=== PATIENT | male | born 1985 | race Caucasian/White ===

== ENCOUNTER 2019-10-17 14:32 | Emergency (ER) | payer OTHER ==
[2019-10-17 14:56] VITALS: BMI 21.9
[2019-10-17] MEDS ORDERED: KETOROLAC TROMETHAMINE 30 MG/1 ML VIAL IVPUSH ONE (16:28)
[2019-10-17] MEDS ORDERED: SODIUM CHLORIDE 1,000 ML IV STA (16:28)
[2019-10-17] MEDS ORDERED: ONDANSETRON *ODT* 4 MG TABLET ONE ×2 (16:32→17:59)
[2019-10-17] MEDS ORDERED: ONDANSETRON *ODT* 4 MG TABLET SL ONE (16:37)
--- NOTE | 2019-10-17 16:37 | PDOC ---
History of Present Illness - General Chief Complaint: Back Pain Stated Complaint: BACK PAIN Time Seen by Provider: 10/17/19 16:08 History Source: Patient Exam Limitations: No Limitations Past History - Travel Traveled outside of the country in the last 30 days: No Close contact w/someone who was outside of country & ill: No - Past Medical History Allergies/Adverse Reactions: Allergies Allergy/AdvReac Type Severity Reaction Status Date / Time No Known Allergies Allergy Verified 10/17/19 14:56 - Psycho Social/Smoking Cessation Hx Smoking History: Never smoked Hx Alcohol Use: No Drug/Substance Use Hx: No Review of Systems - Review of Systems Able to Perform ROS?: Yes Comments:: 10/17/19 16:37 CONSTITUTIONAL: Absent: fever, chills, diaphoresis, generalized weakness, malaise, loss of appetite HEENT: Absent: rhinorrhea, nasal congestion, throat pain, throat swelling, difficulty swallowing, mouth swelling, ear pain, eye pain, visual Changes GASTROINTESTINAL: Present: Nausea absent: abdominal pain, abdominal distension, vomiting, diarrhea , constipation, melena, hematochezia GENITOURINARY: Present: Hematuria, flank pain absent: dysuria, frequency, urgency, hesitancy, genital pain MUSCULOSKELETAL: Absent: myalgia, arthralgia, joint swelling SKIN: Absent: rash, itching, pallor NEUROLOGIC: Absent: headache, focal weakness or paresthesias, dizziness, unsteady gait, seizure, mental status changes, bladder or bowel incontinence PSYCHIATRIC: Absent: anxiety, depression, suicidal or homicidal ideation, hallucinations. Is the patient limited Ecuadorean proficient: No *Physical Exam - Vital Signs Last Vital Signs Temp Pulse Resp BP Pulse Ox 97.6 F 98 H 16 118/67 100 10/17/19 14:54 10/17/19 14:54 10/17/19 14:54 10/17/19 14:54 10/17/19 14:54 - Physical Exam 10/17/19 16:38 GENERAL: Well developed, well nourished. Awake and alert. Patient in mild distress, appears uncomfortable. HEENT: Normocephalic, atraumatic. PERRLA, EOMI. No conjunctival pallor. Sclera are non- icteric. Moist mucous membranes. Oropharynx is clear. NECK: Supple. Full ROM. No JVD. Carotid pulses 2+ and symmetric, without bruits. No thyromegaly. No lymphadenopathy. CARDIOVASCULAR: Regular rate and rhythm. No murmurs, rubs, or gallops. Distal pulses are 2+ and symmetric. PULMONARY: No evidence of respiratory distress. Lungs clear to auscultation bilaterally. No wheezing, rales or rhonchi. ABDOMINAL: Soft. Non-tender. Non-distended. No rebound or guarding. No organomegaly. Normoactive bowel sounds. MUSCULOSKELETAL Normal range of motion at all joints. No bony deformities or tenderness. (+) Right-sided CVA tenderness. EXTREMITIES: No cyanosis. No clubbing. No edema. No calf tenderness. SKIN: Warm and dry. Normal capillary refill. No rashes. No jaundice. NEUROLOGICAL: Alert, awake, appropriate. Cranial nerves 2-12 intact. No deficits to light touch and temperature in face, upper extremities and lower extremities. No motor deficits in the in face, upper extremities and lower extremities. Normoreflexic in the upper and lower extremities. Normal speech. Toes are down- going bilaterally. Gait is normal without ataxia. PSYCHIATRIC: Cooperative. Good eye contact. Appropriate mood and affect. Medical Decision Making - Medical Decision Making 10/17/19 16:40 The patient is a 34-year-old male with past medical history of kidney stones, presents to the ER with back pain starting this morning. He denies trauma or falling. He states that the pain is colicky in nature and that he had an episode of blood in his urine today. He states this feels like his last kidney stone. He has not taken anything for the pain. Denies fevers, chills, vomiting , diarrhea, constipation and dysuria. A/P: Right flank pain (+) R sided CVA tenderness Likely repeat kidney stone Pt feels naueous Line, Labs, Meds, CT Spiral ordered Transfer to [facility]. [employer] Chetan and charge nurse Georgie made aware. Discharge - Discharge Information Problems reviewed: Yes Clinical Impression/Diagnosis: Flank pain - Follow up/Referral Referrals: ON STAFF,NOT [Primary Care Provider] - - Patient Discharge Instructions - Post Discharge Activity
--- NOTE | 2019-10-17 17:18 | PDOC ---
*Physical Exam - Vital Signs Last Vital Signs Temp Pulse Resp BP Pulse Ox 97.6 F 98 H 16 118/67 100 10/17/19 14:54 10/17/19 14:54 10/17/19 14:54 10/17/19 14:54 10/17/19 14:54 ED Treatment Course - LABORATORY CBC & Chemistry Diagram: 10/17/19 18:15 10/17/19 18:15 Medical Decision Making - Medical Decision Making 10/17/19 17:00 Patient received from fast track for evaluation of right CVA tenderness and history of renal colic. Patient pending labs, imaging fluids and pain management 10/17/19 18:53 Laboratory Tests 10/17/19 18:15 WBC 6.6 Hct 45.7 MCV 86.0 Absolute Neuts (auto) 4.[address] awaiting results. Patient otherwise comfortable Discharge - Discharge Information Clinical Impression/Diagnosis: Flank pain - Follow up/Referral Referrals: ON STAFF,NOT [Primary Care Provider] - - Patient Discharge Instructions - Post Discharge Activity
[2019-10-17] MEDS ORDERED: KETOROLAC TROMETHAMINE 30 MG/1 ML VIAL ONE (18:00)
[2019-10-17 18:36] LABS: BASO % 0.5 % (0-2.0); EOS % 4.4 % (0-4.5); HEMATOCRIT 45.7 % (35.4-49); HEMOGLOBIN 15.3 GM/dL (11.7-16.9); MCH 28.7 pg (25.7-33.7); MCHC 33.4 g/dl (32.0-35.9); MEAN PLT VOLUME 8.8 fl (7.5-11.1); MONO % 5.3 % (3.8-10.2); NEUT % 66.8 % (42.8-82.8); PLATELET COUNT 263 K/MM3 (134-434); RBC 5.31 M/mm3 (4.00-5.60); RDW 13.7 % (11.9-15.9); WHITE BLOOD COUNT 6.6 K/mm3 (4.0-10.0)
[2019-10-17 19:20] LABS: ALBUMIN 3.9 g/dl (3.4-5.0); BILIRUBIN,TOTAL 0.4 mg/dL (0.2-1); BLOOD UREA NITROGEN 10.6 mg/dL (7-18); CALCIUM 9.2 mg/dL (8.5-10.1); CREATININE 1.2 mg/dL (0.55-1.3); POTASSIUM 4.1 mmol/L (3.5-5.1); TOT PROT 7.4 g/dl (6.4-8.2)
[2019-10-17] MEDS ORDERED: ACETAMINOPHEN 500 MG TABLET (FP) PO ONE (20:25)
--- NOTE | 2019-10-17 20:52 | PDOC ---
*Physical Exam - Vital Signs Last Vital Signs Temp Pulse Resp BP Pulse Ox 97.6 F 98 H 16 118/67 100 10/17/19 14:54 10/17/19 14:54 10/17/19 14:54 10/17/19 14:54 10/17/19 14:54 - Physical Exam General Appearance: Yes: Appropriately Dressed. No: Apparent Distress HEENT: positive: Normal ENT Inspection Neck: positive: Trachea midline Respiratory/Chest: positive: Lungs Clear. negative: Respiratory Distress Cardiovascular: positive: Regular Rhythm, Regular Rate. negative: Murmur Gastrointestinal/Abdominal: positive: Normal Bowel Sounds, Soft. negative: Tender Musculoskeletal: positive: CVA Tenderness (L) Extremity: positive: Normal Inspection Integumentary: positive: Normal Color, Dry, Warm Neurologic: positive: Fully Oriented, Alert ED Treatment Course - LABORATORY CBC & Chemistry Diagram: 10/17/19 18:15 10/17/19 18:15 - ADDITIONAL ORDERS Additional order review: Laboratory Results 10/17/19 18:15 Sodium 140 Potassium 4.1 Chloride 106 Carbon Dioxide 31 Anion Gap 3 L BUN 10.6 Creatinine 1.2 Est GFR (CKD-EPI)AfAm 89.62 Est GFR (CKD-EPI)NonAf 77.33 Random Glucose 103 Calcium 9.2 Total Bilirubin 0.4 AST 33 ALT 31 Alkaline Phosphatase 102 Total Protein 7.4 Albumin 3.9 10/17/19 18:15 RBC 5.31 MCV 86.0 MCHC 33.4 RDW 13.7 MPV 8.8 Neutrophils % 66.8 Lymphocytes % 23.0 Monocytes % 5.3 Eosinophils % 4.4 Basophils % 0.5 - Medications Given in the ED: ED Medications Discontinued Medications Generic Name Dose Route Start Last Admin Trade Name Freq PRN Reason Stop Dose Admin Acetaminophen 1,000 mg 10/17/19 20:25 10/17/19 20:47 Tylenol - PO 10/17/19 20:26 1,000 mg ONCE ONE Administration Sodium Chloride 1,000 mls @ 1,000 mls/hr 10/17/19 16:28 10/17/19 18:28 Normal Saline - IV 10/17/19 17:27 1,000 mls/hr ASDIR STA Administration Ketorolac Tromethamine 30 mg 10/17/19 16:28 10/17/19 18:28 Toradol Injection - IVPUSH 10/17/19 16:29 30 mg ONCE ONE Administration Ondansetron HCl 4 mg 10/17/19 16:37 10/17/19 18:28 Zofran Odt - SL 10/17/19 16:38 4 mg ONCE ONE Administration ED Progress Note - Progress Note Progress Note: 10/17/19 20:51 Received patient from SHANNA Benton. Briefly this a 34-year-old male past medical history of kidney stones, anxiety who presents emergency department for evaluation of sudden onset left flank pain starting today. Patient reports pain was similar to his previous kidney stone. Laboratory testing performed is unremarkable with urinalysis pending Patient is pending CT scan. Patient has received Toradol 30 mg IV and Zofran 4 mg IV Medical Decision Making - Medical Decision Making 10/17/19 20:50 CT scan is read by Dr. Crane: There is no definite right ureteral, urinary bladder calculus. Submillimeter calculi cannot be visualized on CT. 2 mm nonobstructing left renal upper and lower pole calculi are seen. No hydronephrosis is noted. Mild prostate enlargement The spleen is mildly enlarged measuring 13.3 cm in length. Stomach demonstrates moderate fluid-filled distention. No gross obstruction lesion is seen in noncontrast imaging. Several slightly prominent retroperitoneal lymph nodes are noted. Direct comparison with prior CT studies would be quite helpful if available from different facility. Prior studies are not available additional evaluation utilizing PET/CT versus 2-month follow-up CT is suggested. Patient reports eating approximately an hour and a half prior to CAT scan. Laboratory testing is unremarkable. Splenomegaly is likely not from infectious , malignant or hepatic etiology. Defer additional testing to primary medical doctor for continued evaluation and repeat imaging as an outpatient. Urinalysis is pending. 10/17/19 21:10 Laboratory Tests 10/17/19 21:00 Urine Color Yellow Urine Appearance Clear Urine pH 7.0 Ur Specific [place] 1.005 L Urine Protein Negative Urine Glucose (UA) Negative Urine Ketones Negative Urine Blood 3+ H Urine Nitrite Negative Urine Bilirubin Negative Urine Urobilinogen 1.0 Ur Leukocyte Esterase Negative Urine WBC (Auto) 1 Urine RBC (Auto) 9 Urine Casts (Auto) 0 U Epithel Cells (Auto) 0.3 Urine Bacteria (Auto) 1.4 Discharge patient home to follow-up with primary doctor and also give referral for urology given patient with microscopic hematuria, flank pain and renal calculi present on CT scan. I discussed the physical exam findings, ancillary test results and final diagnoses with the patient. I answered all of the patient's questions. The patient was satisfied with the care received and felt comfortable with the discharge plan and treatment plan. The patient will call their primary care physician within 24 hours to arrange follow-up and will return to the Emergency Department with any new, persistent or worsening symptoms. Discharge - Discharge Information Problems reviewed: Yes Clinical Impression/Diagnosis: Flank pain Condition: Fair Disposition: HOME - Admission No - Additional Discharge Information Prescriptions: Meloxicam 15 mg PO BID PRN #10 tablet PRN Reason: Pain Level 4 - 6 Ondansetron [Zofran -] 4 mg PO TID #21 tablet - Follow up/Referral Referrals: ON STAFF,NOT [Primary Care Provider] - Milton Brantley MD [Staff Physician] - - Patient Discharge Instructions Additional Instructions: Your CAT scan today showed 2 stones in your left kidney. Also you have a slightly enlarged spleen which needs to be evaluated with your regular doctor in 2 to 3 months. 2-3 L of water daily. strain all urine Take mobic one tablet twice a day for pain See your urologist in 1-2 days Into the ER if fever, vomiting, uncontrolled pain or feeling sicker - Post Discharge Activity Work/Back to School Note: Back to Work
[2019-10-17 21:08] LABS: EPI CELLS 0.3 /HPF (0-5/HPF); HYALINE CASTS 0 /lpf (0-8); URINE APPEARANCE CLEAR; URINE BACTERIA 1.4 /hpf (NEGATIVE); URINE BILIRUBIN NEGATIVE (NEGATIVE); URINE COLOR YELLOW; URINE GLUCOSE (UA) NEGATIVE (NEGATIVE); URINE KETONE NEGATIVE (NEGATIVE); URINE LEUK ESTERASE NEGATIVE (NEGATIVE); URINE NITRITE NEGATIVE (NEGATIVE); URINE PROTEIN NEGATIVE (NEGATIVE); URINE RBC 9 /hpf (0-4); URINE WBC 1 /hpf (0-5)
[2019-10-17 21:38] VITALS: BP 124/76; PULSE 80; TEMP 98.9
== END 2019-10-17 21:37 | disposition home or self-care (01) ==
LOC: JERFT 14:32 → JER 14:32
PROC: 3E0333Z Introduction of Anti-inflammatory into Peripheral Vein, Percutaneous Approach (ICD-10-PCS; principal; 2019-10-17)
DX: N20.0 Calculus of kidney (principal); R10.32 Left lower quadrant pain; Z87.442 Personal history of urinary calculi; F41.9 Anxiety disorder, unspecified
CPT/HCPCS: 36415; 74176-TC; 80053; 81003; 85025; 87086; 96374; 99282-25; J7030; Q0162

== ENCOUNTER 2019-10-18 12:25 | Emergency (ER) | payer OTHER ==
[2019-10-18 12:32] VITALS: BP 141/69; PULSE 90; TEMP 98; BMI 21.9
[2019-10-18] MEDS ORDERED: KETOROLAC TROMETHAMINE 60 MG/2 ML VIAL IM ONE (13:37)
[2019-10-18] MEDS ORDERED: ONDANSETRON 4 MG TABLET PO ONE (13:37)
--- NOTE | 2019-10-18 13:40 | PDOC ---
History of Present Illness - General Chief Complaint: Pain, Acute Stated Complaint: BLOOD IN URINE Time Seen by Provider: 10/18/19 13:33 History Source: Patient - History of Present Illness Quality: reports: moderate Abdominal Pain Onset Location: reports: flank Past History - Past Medical History Allergies/Adverse Reactions: Allergies Allergy/AdvReac Type Severity Reaction Status Date / Time No Known Allergies Allergy Verified 10/18/19 12:32 Home Medications: Ambulatory Orders Meloxicam 15 mg PO BID PRN #10 tablet 10/17/19 Ondansetron [Zofran -] 4 mg PO TID #21 tablet 10/17/19 COPD: No Kidney Stones: Yes - Psycho Social/Smoking Cessation Hx Smoking History: Current every day smoker Number of Cigarettes Smoked Daily: 10 Information on smoking cessation initiated: No Hx Alcohol Use: No Drug/Substance Use Hx: No Review of Systems - Review of Systems Constitutional: No: Chills, Fever ABD/GI: Yes: Nausea. No: Blood Streaked Bowels, Constipated, Diarrhea, Vomiting , Abdominal cramping, Tarry Stools : Yes: Flank Pain, Hematuria. No: Dysuria *Physical Exam - Vital Signs Last Vital Signs Temp Pulse Resp BP Pulse Ox 98 F 90 18 141/69 99 10/18/19 12:29 10/18/19 12:29 10/18/19 12:29 10/18/19 12:29 10/18/19 12:29 - Physical Exam 10/18/19 15:01 Pt appears well, currently sitting and talking on his cell phone General Appearance: Yes: Appropriately Dressed. No: Apparent Distress HEENT: positive: Normal Voice Neck: positive: Supple Respiratory/Chest: negative: Respiratory Distress Gastrointestinal/Abdominal: positive: Soft. negative: Tender Musculoskeletal: negative: CVA Tenderness Integumentary: positive: Dry, Warm Neurologic: positive: Fully Oriented, Alert, Normal Mood/Affect Medical Decision Making - Medical Decision Making 10/18/19 13:39 34 yo M, h/o renal stones, no surgeries to date, seen in ED yesterday for b/l kidney stones, more so on the L per pt. CT showed L non-obs stone, no ureteral stone or hydro. UA w/ no e/o infxn. Returns today w/ continued L flank pain but states pain has not worsened since yesterday. +mild nausea, since improved. No vomiting, fever, chills or dysuria at this time. Patient was discharged with meloxicam and zofran but has not yet picked up medication from pharmacy. Does not currently have a urologist See exam L flank pain Not worse since visit yesterday CT w/ L non-obs stones yesterday w/ no ureteral stone or hydro, no infxn on UA, ? MSK given worsening w/ movement Has not picked up meloxicam and zofran at pharmacy Well darling here and in NAD w/ benign abd and No CVAT -pain control/reassess -no utility in rpt labs and CT today 10/18/19 14:55 Reports significant improvement with meds and requesting discharge at this time. To follow-up with urology and PMD. Reasons to return discussed with patient Discharge - Discharge Information Problems reviewed: Yes Clinical Impression/Diagnosis: Left flank pain Condition: Improved Disposition: HOME - Follow up/Referral Referrals: ON STAFF,NOT [Primary Care Provider] - Jerry Valdez MD., MD [Staff Physician] - - Patient Discharge Instructions Additional Instructions: Take medications as prescribed and return to ER for worsening of symptoms, otherwise follow-up with Dr. Valdez of urology and your primary doctor - Post Discharge Activity
[2019-10-18] MEDS ORDERED: ONDANSETRON *ODT* 4 MG TABLET ONE (13:55)
[2019-10-18] MEDS ORDERED: KETOROLAC TROMETHAMINE 60 MG/2 ML VIAL ONE (13:55)
== END 2019-10-18 15:00 | disposition home or self-care (01) ==
LOC: JER 12:25
PROC: 3E0233Z Introduction of Anti-inflammatory into Muscle, Percutaneous Approach (ICD-10-PCS; principal; 2019-10-18)
DX: N20.0 Calculus of kidney (principal); Z87.442 Personal history of urinary calculi
CPT/HCPCS: 96372; 99282-25

== ENCOUNTER 2020-05-22 19:41 | Emergency (ER) | payer OTHER ==
[2020-05-22] MEDS ORDERED: KETOROLAC TROMETHAMINE 30 MG/1 ML VIAL IM ONE (19:49)
--- NOTE | 2020-05-22 19:49 | PDOC ---
Rapid Medical Evaluation Time Seen by Provider: 05/22/20 19:46 Medical Evaluation: Allergies Allergy/AdvReac Type Severity Reaction Status Date / Time No Known Allergies Allergy Verified 10/18/19 12:32 05/22/20 19:46 I have performed a brief in-person evaluation of this patient. CC: left flank pain with nausea. Recent dx of right renal stone PE: L CVAT. Orders: urine, toradol Patient will proceed to ED for further evaluation. Discharge Disposition - Diagnosis Left flank pain - Referrals - Patient Instructions - Post Discharge Activity
[2020-05-22 19:50] VITALS: BP 107/62; PULSE 77; TEMP 98.2; BMI 22.7
--- NOTE | 2020-05-22 20:21 | PDOC ---
History of Present Illness - General Chief Complaint: Pain, Acute Stated Complaint: BACK PAIN Time Seen by Provider: 05/22/20 19:46 History Source: Patient - History of Present Illness Initial Comments: 05/22/20 21:46 34-year-old male complaining of right flank pain on and off since October. Patient reports that he had a most recent CT on April 16 which showed a 4 mm obstructing stone. Patient denies any blood in his urine. Reports that today of Flomax was refilled by his physician and took a dose today. Patient is requesting Klonopin for his renal colic reports that it helps with his pain. Patient appears sleepy and is able to answer questions without problems Past History - Medical History Allergies/Adverse Reactions: Allergies Allergy/AdvReac Type Severity Reaction Status Date / Time No Known Allergies Allergy Verified 05/22/20 19:50 Home Medications: Ambulatory Orders Meloxicam 15 mg PO BID PRN #10 tablet 10/17/19 Ondansetron [Zofran -] 4 mg PO TID #21 tablet 10/17/19 COPD: No Kidney Stones: Yes - Psycho-Social/Smoking History Smoking History: Current every day smoker Number of Cigarettes Smoked Daily: 5 Information on smoking cessation initiated: Yes - Substance Abuse Hx (Audit-C & DAST Scrn) How often the patient has a drink containing alcohol: Never Score: In Men: 4 or > Positive; In Women: 3 or > Positive: 0 Screen Result (Pos requires Nsg. Audit-10AR): Negative In the last yr the pt used illegal drug/Rx for NonMed reason: No Score: Yes response is considered Positive: 0 Screen Result (Positive result requires Nsg. DAST-10): Negative Review of Systems - Review of Systems Able to Perform ROS?: Yes Is the patient limited Belarusian proficient: No *Physical Exam - Vital Signs Last Vital Signs Temp Pulse Resp BP Pulse Ox 98.2 F 77 18 107/62 98 05/22/20 19:46 05/22/20 19:46 05/22/20 19:46 05/22/20 19:46 05/22/20 19:46 - Physical Exam General Appearance: Yes: Appropriately Dressed Respiratory/Chest: positive: Lungs Clear, Normal Breath Sounds Musculoskeletal: positive: CVA Tenderness (R) Extremity: positive: Normal Capillary Refill, Normal Inspection, Normal Range of Motion Neurologic: positive: Fully Oriented, Alert, Motor Strength 5/5, Other Medical Decision Making - Medical Decision Making A: low back pain right flank area P; ua urine tox Spiral CT : no obstructed stone outpaTIENT urology/ pcp follow up Discharge - Discharge Information Problems reviewed: Yes Clinical Impression/Diagnosis: Back pain Qualifiers: Back pain location: low back pain Chronicity: chronic Back pain laterality: right Sciatica presence: unspecified whether sciatica present Qualified Code(s): M54.5 - Low back pain Disposition: HOME - Follow up/Referral - Patient Discharge Instructions Patient Printed Discharge Instructions: Low Back Pain Additional Instructions: Take ibuprofen every 6 hours as needed for pain. You may continue Flomax. Follow-up with a urologist return to the emergency room for any worsening symptoms - Post Discharge Activity
[2020-05-22] MEDS ORDERED: KETOROLAC TROMETHAMINE 30 MG/1 ML VIAL ONE (20:37)
[2020-05-22 20:51] LABS: URINE APPEARANCE CLEAR; URINE BILIRUBIN NEGATIVE (NEGATIVE); URINE COLOR YELLOW; URINE GLUCOSE (UA) NEGATIVE (NEGATIVE); URINE KETONE NEGATIVE (NEGATIVE); URINE LEUK ESTERASE NEGATIVE (NEGATIVE); URINE NITRITE NEGATIVE (NEGATIVE); URINE PROTEIN NEGATIVE (NEGATIVE)
[2020-05-22] MEDS ORDERED: diphenhydrAMINE HCL 25 MG CAPSULE (FP) PO ONE ×2 (20:53→21:13)
[2020-05-22 21:21] LABS: COCAINE, UR NEGATIVE ng/ml (CUTOFF=300); METHADONE, UR NEGATIVE ng/ml (CUTOFF=300); OPIATES, URI NEGATIVE ng/ml (CUTOFF=300); PHENCYCLIDINE,URINE NEGATIVE ng/ml (CUTOFF=25); URINE AMPHETAMINES NEGATIVE ng/ml (CUTOFF=500); URINE BARBITURATES NEGATIVE ng/ml (CUTOFF=200); URINE BENZODIAZEPINES NEGATIVE ng/ml (CUTOFF=200)
== END 2020-05-22 22:30 | disposition home or self-care (01) ==
LOC: JER 19:41
PROC: 3E0233Z Introduction of Anti-inflammatory into Muscle, Percutaneous Approach (ICD-10-PCS; principal; 2020-05-22)
DX: M54.5 Low back pain (principal)
CPT/HCPCS: 74176-TC; 80307; 81003; 87086; 99284-25

== ENCOUNTER 2021-08-01 13:40 | Inpatient (IN) | payer OTHER ==
[2021-08-01 16:06] VITALS: BMI 23.1
[2021-08-01] MEDS ORDERED: ONDANSETRON *ODT* 4 MG TABLET SL PRN (17:59)
[2021-08-01] MEDS ORDERED: MAGNESIUM CITRATE 300 ML BOTTLE PO PRN (17:59)
[2021-08-01] MEDS ORDERED: MENTHOL/PHENOL 1 EACH UD MM PRN (17:59)
[2021-08-01] MEDS ORDERED: MAG HYDROX/AL HYDROX/SIMETH 30 ML UNIT-DOSE CUP PO PRN (17:59)
[2021-08-01] MEDS ORDERED: BISMUTH SUBSALICYLATE 524 MG/30 ML PO PRN (17:59)
[2021-08-01] MEDS ORDERED: ACETAMINOPHEN 325 MG TABLET (FP) PO PRN ×2 (17:59)
[2021-08-01] MEDS ORDERED: MAGNESIUM HYDROX 2400MG/30ML ORAL SUSPENSION 30 ML CUP PO PRN (17:59)
[2021-08-01] MEDS ORDERED: NICOTINE 10 MG CARTRIDGE (INHALER) IH PRN (17:59)
[2021-08-01] MEDS ORDERED: MELATONIN 5 MG TABLETS PO SCH (22:00)
[2021-08-01] MEDS: diazePAM 5 MG TABLET PO SCH (22:57)
[2021-08-01] MEDS: THIAMINE HCL 100 MG TABLET (FP) PO SCH (22:58)
[2021-08-01] MEDS: hydrOXYzine PAMOATE 25 MG CAPSULE (FP) PO SCH ×3 (23:02→23:08)
[2021-08-02] MEDS: hydrOXYzine PAMOATE 25 MG CAPSULE (FP) PO SCH (05:13)
[2021-08-02] MEDS: diazePAM 5 MG TABLET PO SCH ×4 (05:13→22:03)
[2021-08-02] MEDS: PRENATAL VITAMINS W/ FOLIC ACID TABLET (FP) PO SCH (10:27)
[2021-08-02] MEDS: methaDONE HCL 40 MG DISPERSABLE TABLET PO SCH (10:27)
[2021-08-02 11:42] LABS: ALBUMIN 3.4 g/dl (3.4-5.0); BLOOD UREA NITROGEN 9.4 mg/dL (7-18); CALCIUM 8.7 mg/dL (8.5-10.1)
[2021-08-02 11:46] LABS: CREATININE 1.2 mg/dL (0.55-1.3); HEMATOCRIT 44.7 % (35.4-49); HEMOGLOBIN 15.2 GM/dL (11.7-16.9); MCH 29.6 pg (25.7-33.7); MCHC 33.9 g/dl (32.0-35.9); MEAN CELL VOLUME 87.3 fl (80-96); MEAN PLT VOLUME 9.9 fl (7.5-11.1); PLATELET COUNT 155 10^3/uL (134-434); RBC 5.13 M/mm3 (4.00-5.60); RDW 13.1 % (11.9-15.9); WHITE BLOOD COUNT 7.2 K/mm3 (4.0-10.0)
[2021-08-02 11:47] LABS: BILIRUBIN,TOTAL 0.3 mg/dL (0.2-1); TOT PROT 6.5 g/dl (6.4-8.2)
[2021-08-02] MEDS: THIAMINE HCL 100 MG TABLET (FP) PO SCH (21:56)
[2021-08-02] MEDS: AMITRIPTYLINE HCL 25 MG TABLET PO SCH (21:56)
[2021-08-03] MEDS: methaDONE HCL 40 MG DISPERSABLE TABLET PO SCH (05:17)
[2021-08-03] MEDS: diazePAM 5 MG TABLET PO SCH ×3 (05:17→22:58)
[2021-08-03] MEDS: IBUPROFEN 400 MG TABLET (FP) PO PRN ×2 (05:18→23:01)
[2021-08-03] MEDS: METHOCARBAMOL 500 MG TABLET PO PRN (10:09)
[2021-08-03] MEDS: diazePAM 5 MG TABLET PO PRN (10:09)
[2021-08-03] MEDS: PRENATAL VITAMINS W/ FOLIC ACID TABLET (FP) PO SCH (10:09)
[2021-08-03] MEDS: AMITRIPTYLINE HCL 25 MG TABLET PO SCH ×2 (13:20→22:58)
[2021-08-03] MEDS: THIAMINE HCL 100 MG TABLET (FP) PO SCH (22:57)
[2021-08-04] MEDS: methaDONE HCL 40 MG DISPERSABLE TABLET PO SCH (05:09)
[2021-08-04] MEDS: diazePAM 5 MG TABLET PO SCH ×2 (05:09→17:33)
[2021-08-04] MEDS: IBUPROFEN 400 MG TABLET (FP) PO PRN ×2 (05:10→15:07)
[2021-08-04] MEDS: PRENATAL VITAMINS W/ FOLIC ACID TABLET (FP) PO SCH (10:22)
[2021-08-04] MEDS: METHOCARBAMOL 500 MG TABLET PO PRN (10:22)
[2021-08-04] MEDS: diazePAM 5 MG TABLET PO PRN ×2 (10:24→15:06)
[2021-08-04] MEDS: AMITRIPTYLINE HCL 25 MG TABLET PO SCH ×2 (10:29→22:15)
[2021-08-04] MEDS: THIAMINE HCL 100 MG TABLET (FP) PO SCH (22:14)
[2021-08-05] MEDS ORDERED: diazePAM 5 MG TABLET PO ONE (06:00)
[2021-08-05] MEDS: methaDONE HCL 40 MG DISPERSABLE TABLET PO SCH (06:35)
[2021-08-05] MEDS: IBUPROFEN 400 MG TABLET (FP) PO PRN (06:36)
[2021-08-05 09:00] VITALS: BP 113/79; PULSE 91; TEMP 97.5
[2021-08-05] MEDS: PRENATAL VITAMINS W/ FOLIC ACID TABLET (FP) PO SCH (10:29)
[2021-08-05] MEDS: METHOCARBAMOL 500 MG TABLET PO PRN (10:29)
[2021-08-05] MEDS: AMITRIPTYLINE HCL 25 MG TABLET PO SCH (12:17)
== END 2021-08-05 12:29 | disposition other institution (70) | DRG 773 ==
LOC: YASAS 13:40 → Y6N 21:33
PROVIDERS: ADMIT Allergy & Immunology; ATTEND Allergy & Immunology
PROC: HZ2ZZZZ Detoxification Services for Substance Abuse Treatment (ICD-10-PCS; principal; 2021-08-01)
DX: F10.230 Alcohol dependence with withdrawal, uncomplicated (principal); F11.20 Opioid dependence, uncomplicated; F17.210 Nicotine dependence, cigarettes, uncomplicated; F19.280 Other psychoactive substance dependence with psychoactive substance-induced anxiety disorder; F19.282 Other psychoactive substance dependence with psychoactive substance-induced sleep disorder; F19.24 Other psychoactive substance dependence with psychoactive substance-induced mood disorder; F32.A Depression, unspecified; F98.8 Other specified behavioral and emotional disorders with onset usually occurring in childhood and adolescence; Z87.442 Personal history of urinary calculi; Z98.890 Other specified postprocedural states
CPT/HCPCS: 36415; 80053; 85027; 86780; C9803; U0003; U0005

== ENCOUNTER 2021-08-05 12:35 | Inpatient (IN) | payer OTHER ==
[2021-08-05] MEDS ORDERED: ACETAMINOPHEN 325 MG TABLET (FP) PO PRN (12:49)
[2021-08-05] MEDS ORDERED: P-EPHED 60MG/TRIPROLIDI 2.5MG TABLET PO PRN (12:49)
[2021-08-05] MEDS ORDERED: LOPERAMIDE HCL 2 MG CAPSULE PO PRN (12:49)
[2021-08-05] MEDS ORDERED: IBUPROFEN 400 MG TABLET (FP) PO PRN (12:49)
[2021-08-05] MEDS ORDERED: guaiFENesin 200 MG/10 ML 10 ML UNIT-DOSE CUPS PO PRN (12:49)
[2021-08-05] MEDS ORDERED: MAG HYDROX/AL HYDROX/SIMETH 30 ML UNIT-DOSE CUP PO PRN (12:49)
[2021-08-05] MEDS ORDERED: MAGNESIUM HYDROX 2400MG/30ML ORAL SUSPENSION 30 ML CUP PO PRN (12:49)
[2021-08-05] MEDS ORDERED: MAGNESIUM CITRATE 300 ML BOTTLE PO PRN (12:49)
[2021-08-05] MEDS: AMITRIPTYLINE HCL 25 MG TABLET PO SCH (21:29)
[2021-08-05] MEDS: MELATONIN 5 MG TABLETS PO SCH (21:30)
[2021-08-05] MEDS: THIAMINE HCL 100 MG TABLET (FP) PO SCH (21:30)
[2021-08-05] MEDS: hydrOXYzine PAMOATE 25 MG CAPSULE (FP) PO PRN (21:30)
[2021-08-06] MEDS: methaDONE HCL 40 MG DISPERSABLE TABLET PO SCH (07:23)
[2021-08-06] MEDS: PRENATAL VITAMINS W/ FOLIC ACID TABLET (FP) PO SCH (09:13)
[2021-08-06] MEDS: AMITRIPTYLINE HCL 25 MG TABLET PO SCH ×2 (09:13→21:56)
[2021-08-06] MEDS: NICOTINE 7 MG/24 HOURS TOPICAL PATCH TD SCH (09:13)
[2021-08-06] MEDS: hydrOXYzine PAMOATE 25 MG CAPSULE (FP) PO PRN ×3 (09:15→21:56)
[2021-08-06] MEDS: METHOCARBAMOL 500 MG TABLET PO PRN ×2 (11:05→21:56)
[2021-08-06] MEDS: GABAPENTIN 100 MG CAPSULE PO SCH ×3 (11:05→21:56)
[2021-08-06] MEDS: THIAMINE HCL 100 MG TABLET (FP) PO SCH (21:55)
[2021-08-06] MEDS: MELATONIN 5 MG TABLETS PO SCH (21:56)
[2021-08-07] MEDS: methaDONE HCL 40 MG DISPERSABLE TABLET PO SCH (06:19)
[2021-08-07] MEDS: GABAPENTIN 100 MG CAPSULE PO SCH ×2 (06:19→14:32)
[2021-08-07] MEDS ORDERED: MASKS NR ONE (07:56)
[2021-08-07] MEDS: AMITRIPTYLINE HCL 25 MG TABLET PO SCH ×2 (09:38→21:27)
[2021-08-07] MEDS: METHOCARBAMOL 500 MG TABLET PO PRN ×2 (09:38→21:27)
[2021-08-07] MEDS: PRENATAL VITAMINS W/ FOLIC ACID TABLET (FP) PO SCH (09:38)
[2021-08-07] MEDS: hydrOXYzine PAMOATE 25 MG CAPSULE (FP) PO PRN ×2 (09:38→14:42)
[2021-08-07] MEDS: NICOTINE 7 MG/24 HOURS TOPICAL PATCH TD SCH (09:39)
[2021-08-07] MEDS ORDERED: GABAPENTIN 300 MG CAPSULE PO SCH ×2 (14:32→22:00)
[2021-08-07] MEDS: IBUPROFEN 600 MG TABLET (FP) PO PRN (14:42)
[2021-08-07] MEDS ORDERED: GABAPENTIN 300 MG CAPSULE PO ONE (15:03)
[2021-08-07] MEDS: MELATONIN 5 MG TABLETS PO SCH (21:28)
[2021-08-07] MEDS: THIAMINE HCL 100 MG TABLET (FP) PO SCH (21:28)
[2021-08-07] MEDS: GABAPENTIN 300 MG CAPSULE PO SCH (21:29)
[2021-08-08] MEDS: IBUPROFEN 600 MG TABLET (FP) PO PRN ×2 (03:59→22:41)
[2021-08-08] MEDS: GABAPENTIN 300 MG CAPSULE PO SCH ×3 (06:35→21:19)
[2021-08-08] MEDS: methaDONE HCL 40 MG DISPERSABLE TABLET PO SCH (06:35)
[2021-08-08] MEDS: PRENATAL VITAMINS W/ FOLIC ACID TABLET (FP) PO SCH (09:47)
[2021-08-08] MEDS: hydrOXYzine PAMOATE 25 MG CAPSULE (FP) PO PRN ×3 (09:47→21:19)
[2021-08-08] MEDS: AMITRIPTYLINE HCL 25 MG TABLET PO SCH ×2 (09:47→21:19)
[2021-08-08] MEDS: NICOTINE 7 MG/24 HOURS TOPICAL PATCH TD SCH (09:47)
[2021-08-08] MEDS ORDERED: MASKS NR ONE (11:00)
[2021-08-08] MEDS: THIAMINE HCL 100 MG TABLET (FP) PO SCH (21:19)
[2021-08-08] MEDS: MELATONIN 5 MG TABLETS PO SCH (21:19)
[2021-08-08] MEDS: METHOCARBAMOL 500 MG TABLET PO PRN (21:19)
[2021-08-09] MEDS: METHOCARBAMOL 500 MG TABLET PO PRN ×3 (06:03→22:13)
[2021-08-09] MEDS: GABAPENTIN 300 MG CAPSULE PO SCH ×3 (06:03→22:12)
[2021-08-09] MEDS: methaDONE HCL 40 MG DISPERSABLE TABLET PO SCH (06:03)
[2021-08-09] MEDS: AMITRIPTYLINE HCL 25 MG TABLET PO SCH ×2 (09:43→22:12)
[2021-08-09] MEDS: NICOTINE 7 MG/24 HOURS TOPICAL PATCH TD SCH (09:43)
[2021-08-09] MEDS: PRENATAL VITAMINS W/ FOLIC ACID TABLET (FP) PO SCH (09:43)
[2021-08-09] MEDS: hydrOXYzine PAMOATE 25 MG CAPSULE (FP) PO PRN ×2 (09:44→14:44)
[2021-08-09] MEDS: NICOTINE 10 MG CARTRIDGE (INHALER) IH PRN ×2 (14:46→22:14)
[2021-08-09] MEDS: IBUPROFEN 600 MG TABLET (FP) PO PRN (22:12)
[2021-08-09] MEDS: MELATONIN 5 MG TABLETS PO SCH (22:13)
[2021-08-09] MEDS: THIAMINE HCL 100 MG TABLET (FP) PO SCH (22:13)
[2021-08-10] MEDS: METHOCARBAMOL 500 MG TABLET PO PRN ×2 (06:16→21:25)
[2021-08-10] MEDS: GABAPENTIN 300 MG CAPSULE PO SCH ×3 (06:16→21:25)
[2021-08-10] MEDS: methaDONE HCL 40 MG DISPERSABLE TABLET PO SCH (06:16)
[2021-08-10] MEDS: AMITRIPTYLINE HCL 25 MG TABLET PO SCH ×2 (09:57→21:25)
[2021-08-10] MEDS: IBUPROFEN 600 MG TABLET (FP) PO PRN (09:57)
[2021-08-10] MEDS: PRENATAL VITAMINS W/ FOLIC ACID TABLET (FP) PO SCH (09:57)
[2021-08-10] MEDS: NICOTINE 7 MG/24 HOURS TOPICAL PATCH TD SCH (09:57)
[2021-08-10] MEDS: hydrOXYzine PAMOATE 25 MG CAPSULE (FP) PO PRN ×2 (14:14→21:25)
[2021-08-10] MEDS: MELATONIN 5 MG TABLETS PO SCH (21:25)
[2021-08-10] MEDS: THIAMINE HCL 100 MG TABLET (FP) PO SCH (21:25)
[2021-08-11] MEDS: METHOCARBAMOL 500 MG TABLET PO PRN ×2 (06:07→21:39)
[2021-08-11] MEDS: methaDONE HCL 40 MG DISPERSABLE TABLET PO SCH (06:08)
[2021-08-11] MEDS: GABAPENTIN 300 MG CAPSULE PO SCH ×3 (06:08→21:39)
[2021-08-11] MEDS: NICOTINE 7 MG/24 HOURS TOPICAL PATCH TD SCH (09:53)
[2021-08-11] MEDS: AMITRIPTYLINE HCL 25 MG TABLET PO SCH ×2 (09:53→21:39)
[2021-08-11] MEDS: hydrOXYzine PAMOATE 25 MG CAPSULE (FP) PO PRN ×3 (09:53→21:39)
[2021-08-11] MEDS: PRENATAL VITAMINS W/ FOLIC ACID TABLET (FP) PO SCH (09:53)
[2021-08-11] MEDS: THIAMINE HCL 100 MG TABLET (FP) PO SCH (21:39)
[2021-08-11] MEDS: MELATONIN 5 MG TABLETS PO SCH (21:39)
[2021-08-12] MEDS: IBUPROFEN 600 MG TABLET (FP) PO PRN ×2 (04:00→21:52)
[2021-08-12] MEDS: methaDONE HCL 40 MG DISPERSABLE TABLET PO SCH (06:14)
[2021-08-12] MEDS: METHOCARBAMOL 500 MG TABLET PO PRN ×2 (06:14→21:52)
[2021-08-12] MEDS: GABAPENTIN 300 MG CAPSULE PO SCH ×3 (06:14→21:53)
[2021-08-12] MEDS: NICOTINE 7 MG/24 HOURS TOPICAL PATCH TD SCH (09:58)
[2021-08-12] MEDS: PRENATAL VITAMINS W/ FOLIC ACID TABLET (FP) PO SCH (09:58)
[2021-08-12] MEDS: hydrOXYzine PAMOATE 25 MG CAPSULE (FP) PO PRN ×2 (09:59→15:00)
[2021-08-12] MEDS: AMITRIPTYLINE HCL 25 MG TABLET PO SCH ×2 (09:59→21:52)
[2021-08-12] MEDS: THIAMINE HCL 100 MG TABLET (FP) PO SCH (21:52)
[2021-08-12] MEDS: MELATONIN 5 MG TABLETS PO SCH (21:53)
[2021-08-13] MEDS: IBUPROFEN 600 MG TABLET (FP) PO PRN ×2 (04:50→21:54)
[2021-08-13] MEDS: methaDONE HCL 40 MG DISPERSABLE TABLET PO SCH (06:10)
[2021-08-13] MEDS: GABAPENTIN 300 MG CAPSULE PO SCH ×3 (06:10→21:53)
[2021-08-13] MEDS: hydrOXYzine PAMOATE 25 MG CAPSULE (FP) PO PRN ×3 (09:38→21:53)
[2021-08-13] MEDS: AMITRIPTYLINE HCL 25 MG TABLET PO SCH ×2 (09:38→21:53)
[2021-08-13] MEDS: PRENATAL VITAMINS W/ FOLIC ACID TABLET (FP) PO SCH (09:38)
[2021-08-13] MEDS: METHOCARBAMOL 500 MG TABLET PO PRN ×2 (09:38→21:52)
[2021-08-13] MEDS: NICOTINE 7 MG/24 HOURS TOPICAL PATCH TD SCH (09:38)
[2021-08-13] MEDS: THIAMINE HCL 100 MG TABLET (FP) PO SCH (21:53)
[2021-08-13] MEDS: MELATONIN 5 MG TABLETS PO SCH (21:53)
[2021-08-14] MEDS: GABAPENTIN 300 MG CAPSULE PO SCH ×3 (06:06→21:17)
[2021-08-14] MEDS: methaDONE HCL 40 MG DISPERSABLE TABLET PO SCH (06:06)
[2021-08-14] MEDS: METHOCARBAMOL 500 MG TABLET PO PRN ×2 (06:06→21:17)
[2021-08-14] MEDS: IBUPROFEN 600 MG TABLET (FP) PO PRN ×2 (06:06→14:36)
[2021-08-14] MEDS: AMITRIPTYLINE HCL 25 MG TABLET PO SCH ×2 (09:57→21:17)
[2021-08-14] MEDS: PRENATAL VITAMINS W/ FOLIC ACID TABLET (FP) PO SCH (09:57)
[2021-08-14] MEDS: NICOTINE 7 MG/24 HOURS TOPICAL PATCH TD SCH (09:57)
[2021-08-14] MEDS: hydrOXYzine PAMOATE 25 MG CAPSULE (FP) PO PRN ×2 (09:58→14:36)
[2021-08-14] MEDS: THIAMINE HCL 100 MG TABLET (FP) PO SCH (21:17)
[2021-08-14] MEDS: MELATONIN 5 MG TABLETS PO SCH (21:17)
[2021-08-15] MEDS: methaDONE HCL 40 MG DISPERSABLE TABLET PO SCH (06:05)
[2021-08-15] MEDS: GABAPENTIN 300 MG CAPSULE PO SCH ×3 (06:05→21:20)
[2021-08-15] MEDS: METHOCARBAMOL 500 MG TABLET PO PRN ×2 (06:05→21:20)
[2021-08-15] MEDS: IBUPROFEN 600 MG TABLET (FP) PO PRN ×2 (06:05→18:33)
[2021-08-15] MEDS: PRENATAL VITAMINS W/ FOLIC ACID TABLET (FP) PO SCH (09:58)
[2021-08-15] MEDS: AMITRIPTYLINE HCL 25 MG TABLET PO SCH ×2 (09:58→21:20)
[2021-08-15] MEDS: hydrOXYzine PAMOATE 25 MG CAPSULE (FP) PO PRN ×2 (09:59→21:21)
[2021-08-15] MEDS: NICOTINE 7 MG/24 HOURS TOPICAL PATCH TD SCH (09:59)
[2021-08-15] MEDS: THIAMINE HCL 100 MG TABLET (FP) PO SCH (21:20)
[2021-08-15] MEDS: MELATONIN 5 MG TABLETS PO SCH (21:21)
[2021-08-16] MEDS: methaDONE HCL 40 MG DISPERSABLE TABLET PO SCH (06:52)
[2021-08-16] MEDS: IBUPROFEN 600 MG TABLET (FP) PO PRN ×2 (06:52→21:18)
[2021-08-16] MEDS: METHOCARBAMOL 500 MG TABLET PO PRN ×2 (06:52→21:16)
[2021-08-16] MEDS: GABAPENTIN 300 MG CAPSULE PO SCH ×3 (06:52→21:16)
[2021-08-16] MEDS: PRENATAL VITAMINS W/ FOLIC ACID TABLET (FP) PO SCH (09:52)
[2021-08-16] MEDS: hydrOXYzine PAMOATE 25 MG CAPSULE (FP) PO PRN (09:53)
[2021-08-16] MEDS: AMITRIPTYLINE HCL 25 MG TABLET PO SCH ×2 (09:53→21:16)
[2021-08-16] MEDS: NICOTINE 7 MG/24 HOURS TOPICAL PATCH TD SCH (09:53)
[2021-08-16] MEDS: THIAMINE HCL 100 MG TABLET (FP) PO SCH (21:16)
[2021-08-16] MEDS: MELATONIN 5 MG TABLETS PO SCH (21:16)
[2021-08-17] MEDS: METHOCARBAMOL 500 MG TABLET PO PRN ×2 (06:09→22:06)
[2021-08-17] MEDS: GABAPENTIN 300 MG CAPSULE PO SCH ×3 (06:09→22:06)
[2021-08-17] MEDS: methaDONE HCL 40 MG DISPERSABLE TABLET PO SCH (06:10)
[2021-08-17] MEDS: IBUPROFEN 600 MG TABLET (FP) PO PRN (06:10)
[2021-08-17] MEDS: AMITRIPTYLINE HCL 25 MG TABLET PO SCH ×2 (09:43→22:06)
[2021-08-17] MEDS: PRENATAL VITAMINS W/ FOLIC ACID TABLET (FP) PO SCH (09:43)
[2021-08-17] MEDS: NICOTINE 7 MG/24 HOURS TOPICAL PATCH TD SCH (09:43)
[2021-08-17] MEDS: hydrOXYzine PAMOATE 25 MG CAPSULE (FP) PO PRN (09:44)
[2021-08-17] MEDS: MELATONIN 5 MG TABLETS PO SCH (22:06)
[2021-08-17] MEDS: THIAMINE HCL 100 MG TABLET (FP) PO SCH (22:06)
[2021-08-18] MEDS: methaDONE HCL 40 MG DISPERSABLE TABLET PO SCH (06:14)
[2021-08-18] MEDS: GABAPENTIN 300 MG CAPSULE PO SCH ×3 (06:14→21:22)
[2021-08-18] MEDS: METHOCARBAMOL 500 MG TABLET PO PRN ×2 (06:14→21:22)
[2021-08-18] MEDS: AMITRIPTYLINE HCL 25 MG TABLET PO SCH ×2 (09:53→21:22)
[2021-08-18] MEDS: PRENATAL VITAMINS W/ FOLIC ACID TABLET (FP) PO SCH (09:53)
[2021-08-18] MEDS: NICOTINE 7 MG/24 HOURS TOPICAL PATCH TD SCH (09:53)
[2021-08-18] MEDS: THIAMINE HCL 100 MG TABLET (FP) PO SCH (21:22)
[2021-08-18] MEDS: MELATONIN 5 MG TABLETS PO SCH (21:22)
[2021-08-19] MEDS: GABAPENTIN 300 MG CAPSULE PO SCH (06:31)
[2021-08-19] MEDS: METHOCARBAMOL 500 MG TABLET PO PRN (06:32)
[2021-08-19] MEDS: methaDONE HCL 40 MG DISPERSABLE TABLET PO SCH (06:32)
[2021-08-19] MEDS: IBUPROFEN 600 MG TABLET (FP) PO PRN (06:35)
[2021-08-19 07:01] VITALS: BP 138/92; PULSE 80; TEMP 97.8
[2021-08-19] MEDS: PRENATAL VITAMINS W/ FOLIC ACID TABLET (FP) PO SCH (09:57)
[2021-08-19] MEDS: AMITRIPTYLINE HCL 25 MG TABLET PO SCH (09:57)
[2021-08-19] MEDS: NICOTINE 7 MG/24 HOURS TOPICAL PATCH TD SCH (09:58)
== END 2021-08-19 09:58 | disposition home or self-care (01) | DRG 772 ==
LOC: YASAS 12:35 → Y5N 12:36
PROVIDERS: ADMIT Allergy & Immunology; ATTEND Allergy & Immunology
PROC: HZ42ZZZ Group Counseling for Substance Abuse Treatment, Cognitive-Behavioral (ICD-10-PCS; principal; 2021-08-05)
DX: F10.20 Alcohol dependence, uncomplicated (principal); F11.20 Opioid dependence, uncomplicated; F17.210 Nicotine dependence, cigarettes, uncomplicated; F41.9 Anxiety disorder, unspecified; F98.8 Other specified behavioral and emotional disorders with onset usually occurring in childhood and adolescence; Z87.442 Personal history of urinary calculi; S29.9XXD Unspecified injury of thorax, subsequent encounter; X58.XXXD Exposure to other specified factors, subsequent encounter
CPT/HCPCS: 93005; 93010

== ENCOUNTER 2022-03-21 15:00 | Inpatient (IN) | payer OTHER ==
[2022-03-21] MEDS ORDERED: ONDANSETRON *ODT* 4 MG TABLET SL PRN (22:50)
[2022-03-21] MEDS ORDERED: ACETAMINOPHEN 325 MG TABLET (FP) PO PRN ×2 (22:50)
[2022-03-21] MEDS ORDERED: MAG HYDROX/AL HYDROX/SIMETH 30 ML UNIT-DOSE CUP PO PRN (22:50)
[2022-03-21] MEDS ORDERED: hydrOXYzine PAMOATE 25 MG CAPSULE (FP) PO PRN (22:50)
[2022-03-21] MEDS ORDERED: MAGNESIUM CITRATE 300 ML BOTTLE PO PRN (22:50)
[2022-03-21] MEDS ORDERED: BISMUTH SUBSALICYLATE 524 MG/30 ML PO PRN (22:50)
[2022-03-21] MEDS ORDERED: BENZOCAINE/MENTHOL (CHLORASEPTIC ) LOZENGE MM PRN (22:50)
[2022-03-21] MEDS ORDERED: MAGNESIUM HYDROX 2400MG/30ML ORAL SUSPENSION 30 ML CUP PO PRN (22:50)
[2022-03-21] MEDS ORDERED: DICYCLOMINE HCL 10 MG CAPSULE PO PRN (22:50)
[2022-03-21] MEDS ORDERED: LOPERAMIDE HCL 2 MG CAPSULE PO PRN (22:50)
[2022-03-22] MEDS: GABAPENTIN 300 MG CAPSULE PO SCH ×3 (00:49→15:03)
[2022-03-22] MEDS: MELATONIN 5 MG TABLETS PO PRN (00:50)
[2022-03-22] MEDS: diazePAM 5 MG TABLET PO SCH ×5 (00:50→23:59)
[2022-03-22] MEDS: diazePAM 5 MG TABLET PO PRN (07:46)
[2022-03-22] MEDS ORDERED: methaDONE HCL 10 MG TABLET PO SCH (10:00)
[2022-03-22] MEDS ORDERED: methaDONE HCL 40 MG DISPERSABLE TABLET ONE (10:41)
[2022-03-22] MEDS ORDERED: methaDONE HCL 10 MG TABLET ONE (10:41)
[2022-03-22] MEDS: methaDONE 40 MG, methaDONE 30 MG PO SCH (10:42)
[2022-03-22] MEDS: METHOCARBAMOL 500 MG TABLET PO PRN (10:44)
[2022-03-22] MEDS: NICOTINE 14 MG/24 HOURS TOPICAL PATCH TD SCH (10:45)
[2022-03-22] MEDS: PRENATAL VITAMINS W/ FOLIC ACID TABLET (FP) PO SCH (10:46)
[2022-03-22] MEDS ORDERED: hydrOXYzine PAMOATE 25 MG CAPSULE (FP) PO PRN (12:53)
[2022-03-22 13:10] LABS: HEMATOCRIT 41.7 % (35.4-49); HEMOGLOBIN 14.1 GM/dL (11.7-16.9); MCH 27.9 pg (25.7-33.7); MCHC 33.7 g/dl (32.0-35.9); MEAN CELL VOLUME 82.8 fl (80-96); MEAN PLT VOLUME 8.9 fl (7.5-11.1); PLATELET COUNT 193 10^3/uL (134-434); RBC 5.03 M/mm3 (4.00-5.60); RDW 13.9 % (11.9-15.9); WHITE BLOOD COUNT 6.6 K/mm3 (4.0-10.0)
[2022-03-22 13:20] LABS: CALCIUM 9.3 mg/dL (8.5-10.1)
[2022-03-22 13:21] LABS: ALBUMIN 3.5 g/dl (3.4-5.0)
[2022-03-22 13:24] LABS: CREATININE 1.3 mg/dL (0.55-1.3)
[2022-03-22 13:25] LABS: TOT PROT 6.6 g/dl (6.4-8.2)
[2022-03-22 13:26] LABS: BILIRUBIN,TOTAL 0.6 mg/dL (0.2-1)
[2022-03-23] MEDS: THIAMINE HCL 100 MG TABLET (FP) PO SCH ×2 (00:03→22:47)
[2022-03-23] MEDS ORDERED: methaDONE HCL 10 MG TABLET ONE (04:45)
[2022-03-23] MEDS ORDERED: methaDONE HCL 40 MG DISPERSABLE TABLET ONE (04:46)
[2022-03-23] MEDS: diazePAM 5 MG TABLET PO SCH ×3 (06:18→22:46)
[2022-03-23] MEDS: methaDONE 40 MG, methaDONE 30 MG PO SCH (06:18)
[2022-03-23] MEDS: GABAPENTIN 300 MG CAPSULE PO SCH ×4 (06:18→22:46)
[2022-03-23] MEDS: PRENATAL VITAMINS W/ FOLIC ACID TABLET (FP) PO SCH (10:31)
[2022-03-23] MEDS: diazePAM 5 MG TABLET PO PRN (10:31)
[2022-03-23] MEDS: NICOTINE 14 MG/24 HOURS TOPICAL PATCH TD SCH (10:31)
[2022-03-23] MEDS: MELATONIN 5 MG TABLETS PO PRN (22:49)
[2022-03-24] MEDS ORDERED: methaDONE HCL 10 MG TABLET ONE (04:21)
[2022-03-24] MEDS ORDERED: methaDONE HCL 40 MG DISPERSABLE TABLET ONE (04:21)
[2022-03-24] MEDS: methaDONE 40 MG, methaDONE 30 MG PO SCH (05:36)
[2022-03-24] MEDS: diazePAM 5 MG TABLET PO SCH ×2 (05:36→17:54)
[2022-03-24] MEDS: GABAPENTIN 300 MG CAPSULE PO SCH ×3 (05:36→22:56)
[2022-03-24] MEDS: NICOTINE 14 MG/24 HOURS TOPICAL PATCH TD SCH (10:31)
[2022-03-24] MEDS: PRENATAL VITAMINS W/ FOLIC ACID TABLET (FP) PO SCH (10:31)
[2022-03-24] MEDS: cloNIDine HCL 0.1 MG TABLET PO PRN ×2 (11:36→22:56)
[2022-03-24] MEDS: METHOCARBAMOL 500 MG TABLET PO PRN (17:53)
[2022-03-24] MEDS: THIAMINE HCL 100 MG TABLET (FP) PO SCH (22:56)
[2022-03-24] MEDS: MELATONIN 5 MG TABLETS PO PRN (22:58)
[2022-03-25] MEDS ORDERED: methaDONE HCL 40 MG DISPERSABLE TABLET ONE (04:19)
[2022-03-25] MEDS ORDERED: methaDONE HCL 10 MG TABLET ONE (04:19)
[2022-03-25] MEDS ORDERED: diazePAM 5 MG TABLET PO ONE (06:00)
[2022-03-25] MEDS: methaDONE 40 MG, methaDONE 30 MG PO SCH (06:11)
[2022-03-25] MEDS: GABAPENTIN 300 MG CAPSULE PO SCH (06:11)
[2022-03-25 09:42] VITALS: BP 126/67; PULSE 76; TEMP 987
[2022-03-25] MEDS: PRENATAL VITAMINS W/ FOLIC ACID TABLET (FP) PO SCH (10:07)
[2022-03-25] MEDS: cloNIDine HCL 0.1 MG TABLET PO PRN (10:07)
[2022-03-25] MEDS: NICOTINE 14 MG/24 HOURS TOPICAL PATCH TD SCH (10:07)
== END 2022-03-25 11:40 | disposition home or self-care (01) | DRG 773 ==
LOC: YASAS 15:00 → Y6N 23:28
PROVIDERS: ADMIT Allergy & Immunology; ATTEND Surgery
PROC: HZ2ZZZZ Detoxification Services for Substance Abuse Treatment (ICD-10-PCS; principal; 2022-03-21)
DX: F13.230 Sedative, hypnotic or anxiolytic dependence with withdrawal, uncomplicated (principal); F11.20 Opioid dependence, uncomplicated; F17.213 Nicotine dependence, cigarettes, with withdrawal; F41.9 Anxiety disorder, unspecified; F34.1 Dysthymic disorder; K21.9 Gastro-esophageal reflux disease without esophagitis; R41.82 Altered mental status, unspecified; Z63.4 Disappearance and death of family member
CPT/HCPCS: 36415; 80053; 85027; 86780; C9803-CS; J0735; Q0162; U0003; U0005

== ENCOUNTER 2022-03-25 16:02 | Emergency (ER) | payer OTHER ==
[2022-03-25 16:26] VITALS: BMI 25.2
[2022-03-25 21:11] LABS: BASO % 0.4 % (0-2.0); EOS % 5.6 % (0-4.5); HEMATOCRIT 41.6 % (35.4-49); HEMOGLOBIN 13.7 GM/dL (11.7-16.9); LYMPH % 33.7 % (8-40); MCH 27.5 pg (25.7-33.7); MEAN CELL VOLUME 83.4 fl (80-96); MEAN PLT VOLUME 8.8 fl (7.5-11.1); MONO % 6.2 % (3.8-10.2); NEUT % 54.1 % (42.8-82.8); PLATELET COUNT 200 10^3/uL (134-434); RBC 4.99 M/mm3 (4.00-5.60); WHITE BLOOD COUNT 7.7 K/mm3 (4.0-10.0)
[2022-03-25 21:21] LABS: URINE APPEARANCE CLEAR; URINE BILIRUBIN NEGATIVE (NEGATIVE); URINE COLOR YELLOW; URINE GLUCOSE (UA) NEGATIVE (NEGATIVE); URINE KETONE NEGATIVE (NEGATIVE); URINE LEUK ESTERASE NEGATIVE (NEGATIVE); URINE NITRITE NEGATIVE (NEGATIVE); URINE PROTEIN NEGATIVE (NEGATIVE); URINE UROBILINOGEN 0.2 mg/dL (0.2-1.0)
[2022-03-25 21:35] LABS: COCAINE, UR NEGATIVE (NEGATIVE); METHADONE, UR POSITIVE (NEGATIVE); OPIATES, URI NEGATIVE (NEGATIVE); PHENCYCLIDINE,URINE NEGATIVE (NEGATIVE); URINE AMPHETAMINES NEGATIVE (NEGATIVE); URINE BARBITURATES NEGATIVE (NEGATIVE); URINE BENZODIAZEPINES POSITIVE (NEGATIVE)
[2022-03-25 21:48] LABS: CHLORIDE 103 mmol/L (98-107); SODIUM 142 mmol/L (136-145)
[2022-03-25 21:50] LABS: ALBUMIN 3.5 g/dl (3.4-5.0); CALCIUM 8.8 mg/dL (8.5-10.1)
[2022-03-25 21:51] LABS: ANION GAP 3 MMOL/L (8-16); BLOOD UREA NITROGEN 10.8 mg/dL (7-18); CO2 35 mmol/L (21-32); GLUCOSE,RANDOM 77 mg/dL (74-106)
[2022-03-25 21:54] LABS: CREATININE 1.2 mg/dL (0.55-1.3); SGOT/AST 36 U/L (15-37); SGPT/ALT 31 U/L (13-61)
[2022-03-25 21:55] LABS: BILIRUBIN,TOTAL 0.3 mg/dL (0.2-1); TOT PROT 6.6 g/dl (6.4-8.2)
[2022-03-25 21:57] LABS: ALK PHOS 95 U/L (45-117)
[2022-03-26] MEDS ORDERED: methaDONE HCL 10 MG TABLET (FOR DETOX USE ONLY) PO ONE (08:57)
[2022-03-26] MEDS ORDERED: methaDONE HCL 10 MG TABLET ONE ×2 (09:38→11:00)
[2022-03-26] MEDS ORDERED: methaDONE HCL 40 MG DISPERSABLE TABLET ONE (09:38)
[2022-03-26] MEDS ORDERED: clonazePAM 2 MG TABLET PO ONE (10:50)
[2022-03-26] MEDS ORDERED: clonazePAM 0.5 MG TABLET ONE (10:59)
[2022-03-26 11:16] VITALS: BP 143/68; PULSE 66; TEMP 97.1
== END 2022-03-26 12:28 | disposition home or self-care (01) ==
LOC: JER 16:02
DX: F32.A Depression, unspecified (principal)
CPT/HCPCS: 36415; 80053; 80307; 81003; 82550; 82553; 84443; 85025; 93005; 93010; 99284-25